=== PATIENT | female | born 1980 | race Caucasian/White ===

== ENCOUNTER 2024-10-28 10:40 | Outpatient (CLI) | payer MEDICAID ==
[~2024-10-28 10:40] MED LIST: CYCL-1 PO
--- NOTE | 2024-10-28 11:43 | RADIOLOGY REPORT ---
Procedure: DI ACUTE ABDOMEN Exam Date: 10/28/2024 11:00 AM History: ACUTE ABDOMINAL PAIN Comparison Study: None Technique: AP of the chest AP upright of the abdomen AP supine of the abdomen FINDINGS: No focal evidence of airspace disease. The cardiomediastinal silhouette is within normal limits. No acute osseous lesions. Moderate stool burden. Nonobstructive bowel gas pattern noted. There is no evidence for pneumoperiton eum. No abnormal calcifications noted. IMPRESSION: Non-specific gas-filled loops of bowel. Moderate stool burden.
--- NOTE | 2024-10-28 12:33 | RADIOLOGY REPORT ---
INDICATION: ABDOMINAL PAIN TECHNIQUE: Multiple real-time sonographic images of the abdomen were obtained. COMPARISON: None FINDINGS: The liver is homogenous in echogenicity. The liver measures 15cm. No intrahepatic biliary ductal dilatation is noted. The gallbladder wall measures 0.2 cm and is unremarkable. No gallstones or sludge is seen. The com mon duct measures 0.4 cm and is unremarkable. No pericholecystic fluid is noted. The right kidney measures 9.6cm. No hydronephrosis. The left kidney measures 10.3cm. No hydronephro sis. The spleen measures 11cm, within normal limits. The echogenicity is within normal limits. The pancreas is not well visualized due to obscuration from bowel gas. The visualized portions of the IVC and aorta are grossly unremarkable. IMPRESSION: Normal exam of the abdomen.
== END 2024-10-28 23:59 | disposition home or self-care (01) ==
LOC: RAD 10:40
PROVIDERS: ATTEND Student in an Organized Health Care Education/Training Program
DX: K56.41 Fecal impaction (principal); R10.9 Unspecified abdominal pain
CPT/HCPCS: 74022; 76700